=== PATIENT | male | born 1950 | race American Indian/Alaskan Native ===

== ENCOUNTER 2016-09-29 07:09 | Day surgery (SDC) | payer OTHER, MEDICARE ==
[2015-05-23 18:28] VITALS: PULSE 82
[2016-09-29] MEDS ORDERED: Propofol 10 mg/ml Inj (20 ML) ONE (08:41)
[2016-09-29] MEDS ORDERED: Midazolam 2 MG/2 ML VIAL ONE (08:42)
[2016-09-29] MEDS ORDERED: cefTRIAXone (Rocephin) 1 gm Inj ONE (09:45)
[2016-09-29] MEDS ORDERED: HYDROmorphone 0.5 mg/0.5 ml ISec IVP PRN (10:19)
[2016-09-29] MEDS ORDERED: Sodium Chloride 0.9% 1,000 ML IV SCH (10:30)
[2016-09-29 11:57] VITALS: TEMP 97.6; O2SAT 95
[2016-09-29 12:07] VITALS: BP 129/67; PULSE 63; RESP 18
[2016-09-29 12:08] VITALS: BMI 31.6
--- NOTE | 2016-09-29 13:54 | OP ---
PROCEDURE DATE: 09/29/2016 PREOPERATIVE DIAGNOSES: 1. Hematuria. 2. Prostate cancer. 3. Bladder neck contracture. POSTOPERATIVE DIAGNOSES: 1. Hematuria. 2. Prostate cancer. 3. Bladder neck contracture. PROCEDURES: 1. Cystoscopy. 2. Transurethral incision of bladder neck contracture. SURGEON: Richy Almazan MD TYPE OF ANESTHESIA: General. COMPLICATIONS: None. SPECIMEN: None. DRAINS: An 18-Urdu 2-way De Oliveira catheter. DESCRIPTION OF PROCEDURE: After informed consent was obtained, the patient was taken to the operating room, placed on the operating table. Anesthesia was administered. The patient was then placed in a dorsal lithotomy position and prepped and draped in usual sterile fashion. First a 21-Urdu cystoscope was placed and patient's recent events proximally under direct vision. There were few open strictures noted in the penile urethra. The bladder neck was then visualized. There was a tight, but open contracture noted. Cystoscope could not be passed beyond this area into the bladder. At this point, the cystoscope was withdrawn. A 26-Urdu resectoscope sheath with a Petty knife were then passed into the reefer and was able to be advanced to the level of the bladder neck. At this point, under direct vision, the Petty knife was able to be inserted through the strictured area into the bladder. The Petty knife was then used to incise the bladder neck contracture at the 6 o'clock position. The bladder neck was able to be opened in order to passage of the scope. At this point, the resectoscope sheath was withdrawn. The 21-Urdu cystoscope was then able to be passed under direct vision and the bladder was then entered. A full inspection of the bladder was then performed, which revealed no stones, tumors, or foreign bodies of the bladder. Both ureteral orifices were visualized and appeared within normal limits. There was clear efflux noted from both ureteral orifices. At this point, the procedure was completed. The cystoscope was withdrawn under direct vision. The area of the incision was inspected. There was complete hemostasis from this area. The cystoscope was then completely removed. The reminder of the urethra was within normal limits. At this point, an 18-Urdu 2-way De Oliveira catheter was passed and placed to straight bladder drainage. The patient tolerated the procedure well and he was returned to the supine position and taken to the recovery room awake and in stable condition. Richy Almazan MD [facility] # [id number]
== END 2016-09-29 13:00 | disposition home or self-care (01) ==
LOC: SDS 07:09
PROVIDERS: ATTEND Urology
DX: N32.0 Bladder-neck obstruction (principal); R31.9 Hematuria, unspecified; I10 Essential (primary) hypertension; I25.10 Atherosclerotic heart disease of native coronary artery without angina pectoris; I50.9 Heart failure, unspecified; I49.9 Cardiac arrhythmia, unspecified; Z95.0 Presence of cardiac pacemaker
CPT/HCPCS: 53899; J0696; J1170; J2250; J2704; J3010; J7040; J7120